=== PATIENT | female | born 1995 | race Caucasian/White ===

== ENCOUNTER 2018-02-18 09:10 | Emergency (ER) | payer OTHER, BC ==
--- NOTE | 2018-02-18 09:23 | EDM.PDOC ---
ED HPI GENERAL MEDICAL PROBLEM - General Stated Complaint: SMASHED LEFT HAND Time Seen by Provider: 02/18/18 09:10 Source of Information: Reports: Patient, Family History Limitations: Reports: No Limitations - History of Present Illness INITIAL COMMENTS - FREE TEXT/NARRATIVE: 22 y.o.w.f came with her mon to the ed shortly after she smashed her left hand between doors at work,. Pt noticed a smoaal abrasion and swelling of her left hand. Pt had FROM of her left hand. No N/V/D, no dizziness or any other other acute medical issues. BP 134/69 RR 20 Pulse ox 98% on RA, Temp 36.9 Pulse 74 Onset Date: 02/18/18 Onset Time: 08:00 Duration: Hour(s): Location: Reports: Upper Extremity, Left Quality: Reports: Ache, Dull Severity: Mild Improves with: Reports: Rest Worsens with: Reports: Movement Context: Reports: Trauma Associated Symptoms: Reports: No Other Symptoms - Related Data Allergies Allergy/AdvReac Type Severity Reaction Status Date / Time No Known Allergies Allergy Verified 02/18/18 09:28 Home Meds: Home Meds NK [No Known Home Meds] 02/18/18 [History] Review of Systems - Review of Systems Review Of Systems: See Below Constitutional: Reports: No Symptoms Eyes: Reports: No Symptoms Ears: Reports: No Symptoms Nose: Reports: No Symptoms Mouth/Throat: Reports: No Symptoms Respiratory: Reports: No Symptoms Cardiovascular: Reports: No Symptoms GI/Abdominal: Reports: No Symptoms Genitourinary: Reports: No Symptoms Musculoskeletal: Reports: No Symptoms Skin: Reports: Wound (abrasion left hand wit swelling ) Neurological: Reports: No Symptoms Psychiatric: Reports: No Symptoms ED EXAM, GENERAL - Physical Exam Exam: See Below Exam Limited By: No Limitations General Appearance: Alert, WD/WN, Mild Distress Eye Exam: Bilateral Eye: Normal Inspection Ears: Normal External Exam Ear Exam: Bilateral Ear: Auricle Normal Nose: Normal Inspection Throat/Mouth: Normal Inspection, Normal Lips, Normal Teeth, Normal Gums, Normal Voice, No Airway Compromise Head: Atraumatic, Normocephalic Neck: Normal Inspection, Supple, Non-Tender, Full Range of Motion Respiratory/Chest: No Respiratory Distress, Lungs Clear, Normal Breath Sounds, No Accessory Muscle Use, Chest Non-Tender Cardiovascular: Normal Peripheral Pulses, Regular Rate, Rhythm, No Edema, No Gallop, No JVD, No Murmur, No Rub Peripheral Pulses: 1+: Brachial (L) GI/Abdominal: Normal Bowel Sounds, Soft, Non-Tender, No Organomegaly, No Distention, No Abnormal Bruit, No Mass, Pelvis Stable (Female) Exam: Deferred Rectal (Female) Exam: Deferred Back Exam: Normal Inspection, Full Range of Motion Extremities: Normal Inspection, Normal Range of Motion, Other Neurological: Alert, Oriented, CN II-XII Intact, Normal Cognition, Normal Gait Psychiatric: Normal Affect Skin Exam: Warm, Dry, Normal Color, Rash (abrasion of elft hand, dorasal aspect , selling of hand) Lymphatic: No Adenopathy Course - Vital Signs Text/Narrative:: 22 y.o.w.f came with her mon to the ed shortly after she smashed her left hand between doors at work,. Pt noticed a smoaal abrasion and swelling of her left hand. Pt had FROM of her left hand. No N/V/D, no dizziness or any other other acute medical issues. BP 134/69 RR 20 Pulse ox 98% on RA, Temp 36.9 Pulse 74 PE: WNWD W F with left hand swelling,TB UTD Imaging: Left Hand: Soft tissue swelling otherwise, NAD Impression: Left hand hematoma, abrasion Tx; Wound care, ICE, Neosporine Reexam: Improved Plan: D/C with instruction Last Recorded V/S: Last Vital Signs Temp 37.1 C 02/18/18 09:13 Pulse 70 02/18/18 09:13 Resp 20 02/18/18 09:13 BP 134/69 02/18/18 09:13 Pulse Ox 100 02/18/18 09:13 - Orders/Labs/Meds Orders: Active Orders 24 hr Category Date Time Status Hand Comp Min 3V Lt [CR] Stat Exams 02/18/18 09:31 Taken Meds: Medications Discontinued Medications Generic Name Dose Route Start Last Admin Trade Name Freq PRN Reason Stop Dose Admin Neomycin/Polymyxin/Bacitracin 1 each 02/18/18 10:25 02/18/18 10:30 Triple Antibiotic Oint TOP 02/18/18 10:26 1 each ONETIME STA Administration Departure - Departure Time of Disposition: 10:28 Disposition: Home, Self-Care 01 Condition: Good Clinical Impression: Traumatic hematoma of hand Qualifiers: Encounter type: initial encounter Laterality: left Qualified Code(s): S60.222A - Contusion of left hand, initial encounter Abrasion hand Qualifiers: Encounter type: initial encounter Laterality: left Qualified Code(s): S60.512A - Abrasion of left hand, initial encounter - Discharge Information Instructions: Crush Injury of the Hand, Hematoma, [id number] Referrals: Kiarra Garvey [facility] [Primary Care Provider] - Forms: ED Return to Work/School Form Additional Instructions: Rest, Ice and elevation, Neospporine ointment to wound twice daily for 5 days. Please f/u with your PMD, please come back if system gets worse acutely - My Orders Last 24 Hours: My Active Orders 02/18/18 09:31 Hand Comp Min 3V Lt [CR] Stat - Assessment/Plan Last 24 Hours: My Active Orders 02/18/18 09:31 Hand Comp Min 3V Lt [CR] Stat
[2018-02-18 09:31] VITALS: BP 134/69
[2018-02-18] MEDS ORDERED: Bacitracin/Neomycin/Polymyxin B Oint 0.9 GM U/D Packet TOP STA (10:25)
--- NOTE | 2018-02-20 11:12 | CR ---
INDICATION: Hand smashed between cart and a post. LEFT HAND: Three views of the right hand were obtained and revealed soft tissue swelling overlying the dorsum of the hand at the level of the metacarpals. A fracture, dislocation, or other significant bone or joint abnormality was not identified. If an occult fracture site is suspected clinically - if symptoms persist - re- examination in 10-14 days may be helpful. MTDD
== END 2018-02-18 10:35 | disposition home or self-care (01) ==
LOC: FB.ED 09:10
DX: S60.222A Contusion of left hand, initial encounter (principal); W23.0XXA Caught, crushed, jammed, or pinched between moving objects, initial encounter
CPT/HCPCS: 73130-LT; 99283